=== PATIENT | male | born 1935 | race Hispanic/Latino ===

== ENCOUNTER → 2020-05-07 | Outpatient (CLI) | payer OTHER ==
[~2020-05-07] MED LIST: IOHEXOL-350 50ML VIAL IV ONE
== END | disposition home or self-care (01) ==
LOC: RAH 09:33
PROVIDERS: ATTEND Family Medicine
DX: R04.2 Hemoptysis (principal); J18.9 Pneumonia, unspecified organism
CPT/HCPCS: 71260; Q9967